=== PATIENT | female | born 1955 | race Hispanic/Latino ===

== ENCOUNTER → 2018-01-15 | Outpatient (CLI) | payer MEDICARE ==
--- NOTE | 2018-01-15 12:15 | Diagnostic Imaging Report ---
PROCEDURE:X-RAY RIGHT WRIST, COMPLETE COMPARISON:None. INDICATIONS:RIGHT WRIST SPRAIN FINDINGS: There are no fractures, dislocations, lytic or blastic lesions. The bones are well-mineralized. The soft-tissues are unremarkable. CONCLUSION: No traumatic pathology. Dictated by: Lis Tyler M.D. on 01/15/2018 at 12:19 Electronically approved by: Lis Tyler M.D. on 01/15/2018 at 12:19
== END ==
LOC: RAD 10:09
PROVIDERS: ATTEND Family Medicine
DX: S63.501A Unspecified sprain of right wrist, initial encounter (principal)

== ENCOUNTER → 2018-09-20 | Outpatient (CLI) | payer MEDICARE ==
--- NOTE | 2018-09-20 14:29 | Diagnostic Imaging Report ---
Exam: Bilateral axillary ultrasound History: Palpable abnormality in the axilla bilaterally. Comparison: None available Findings: In the right axilla in the area of the palpable abnormality nothing abnormal is seen. No mass or abnormal adenopathy. In the left axilla over the area of palpable abnormality there is a superficial hypoechoic subcutaneous lesion measuring 7 x 4 x 5 mm and appearing hypoechoic. This most likely represents a small sebaceous cyst. There is no left axillary lymphadenopathy identified. Impression: Small left axillary sebaceous cyst. Signed by: Dr. Saad Talbert DO on 09/20/2018 2:26 PM
== END ==
LOC: US 11:11
PROVIDERS: ATTEND Family Medicine
DX: L72.3 Sebaceous cyst (principal)
CPT/HCPCS: 76882